=== PATIENT | female | born 1975 | race Caucasian/White ===

== ENCOUNTER 2022-04-19 15:31 | Outpatient (CLI) | payer BC, SELFPAY ==
--- NOTE | 2022-05-04 12:32 | W.PM.SLEEP ---
Sleep Study Details Details Interpreting Provider: Jalen Chaparro MD Date of Sleep Study: 04/19/22 Sleep Study Details: STUDY TYPE:? Home sleep study ? BMI:? Not recorded ORDERING PROVIDER:? Trey INDICATION:? Concerns about sleep apnea ? SLEEP SUMMARY:? Monitor time 410 minutes RESPIRATORY SUMMARY:? AHI of 14.6. Supine AHI 25, prone AHI 35, left lateral AHI 22.9 right lateral AHI 12., upright AHI 4.4 low oxygen was 86% 0.9% of the study oxygen less than 90 %. PERIODIC LIMB MOVEMENTS OF SLEEP:? Not measured CARDIAC:? 62-119, mean 85.1. Snoring% 18.3 IMPRESSION:? Mild obstructive sleep apnea worse in the supine, prone and left lateral position RECOMMENDATION: AutoSet CPAP at a pressure of 4-17. Other considerations for treatment would be dental appliance possibly weight loss and/or airway expansion surgery.
--- NOTE | 2022-05-11 12:30 | W.PM.SLEEP ---
Sleep Study Details Details Interpreting Provider: Jalen Chaparro MD Date of Sleep Study: 04/19/22 Sleep Study Details: STUDY TYPE:? Home ? BMI:? Not available ORDERING PROVIDER:? Trey INDICATION:? Concerns about sleep apnea ? SLEEP SUMMARY:? Monitor time 410 minutes RESPIRATORY SUMMARY:? AHI of 14.6, supine AHI 25, left lateral AHI 22.9, right lateral AHI 12.1, upright 4.4. Low oxygen 86%, 0.9% of study oxygen was less than 90% PERIODIC LIMB MOVEMENTS OF SLEEP:? Not measured CARDIAC:? Range 62 to 119, mean heart rate during sleep 85.1, snore summary 18.3% IMPRESSION:? Mild sleep apnea with supine, prone and left lateral position dependency. RECOMMENDATION: Treatment options include CPAP, dental appliance and/or airway expansion surgery. Would favor AutoSet CPAP at a pressure of 4-17
== END 2022-04-19 15:32 | disposition home or self-care (01) ==
LOC: SLEEP 15:32
PROVIDERS: PCP Family Medicine; Visit Provider Family Medicine
DX: G47.33 Obstructive sleep apnea (adult) (pediatric) (principal)
CPT/HCPCS: 95806

== ENCOUNTER 2022-04-29 08:32 | Outpatient (CLI) | payer BC, SELFPAY | END 2022-04-29 08:33 | disposition home or self-care (01) | LOC: FRMREF 08:32 | PROVIDERS: PCP Family Medicine; Visit Provider Dermatology | DX: L73.2 Hidradenitis suppurativa (principal) | CPT/HCPCS: 87070 ==

== ENCOUNTER 2022-10-20 10:42 | Outpatient (CLI) | payer BC, SELFPAY ==
--- NOTE | 2022-10-20 10:45 | CRLHL7_ITS ---
For Patients: As a result of the Century Cures Act, medical imaging exams and procedure reports are released immediately into your electronic medical record. You may view this report before your referring provider. If you have questions, please contact your health care provider. BILATERAL SCREENING MAMMOGRAM WITH COMPUTER-AIDED DETECTION TECHNIQUE: CC and MLO views were obtained. These mammographic images have been obtained using full-field digital technique. These mammographic images were interpreted with the benefit of computer-aided detection. COMPARISON FILM: 08/25/21, 08/03/20, 08/08/19. FINDINGS: The breasts are heterogeneously dense, which may obscure small masses IMPRESSION: There is no radiographic evidence for malignancy. ASSESSMENT: BI-RADS Category 2: Benign RECOMMENDATION: Routine screening mammogram in 1 year. A lay language report of this examination will be provided to the patient. Bebo Arellano M.D. Diagnostic Radiologist [email or web address] TAWNY/Dictated by: Bebo Arellano MD @ 10/20/2022 12:27:00 PM (Electronically Signed)
== END 2022-10-20 10:43 | disposition home or self-care (01) ==
LOC: MAMMO 10:43
PROVIDERS: PCP Family Medicine; Visit Provider Family Medicine
DX: Z12.31 Encounter for screening mammogram for malignant neoplasm of breast (principal); R92.2 Inconclusive mammogram
CPT/HCPCS: 77063; 77067

== ENCOUNTER 2023-03-15 09:46 | Outpatient (CLI) | payer BC, SELFPAY | END 2023-03-15 09:47 | disposition home or self-care (01) | PROVIDERS: PCP Family Medicine; Visit Provider Family Medicine | DX: L73.2 Hidradenitis suppurativa (principal) | CPT/HCPCS: 80048; 84460; 85025 ==

== ENCOUNTER 2023-11-18 12:54 | Outpatient (CLI) | payer BC, SELFPAY ==
--- OUTSIDE RECORDS SUMMARY | 2023-11-18 12:57 | XMS_ITS | Encounter Summary ---
Author Name Unknown Organization [place] Address [address] [place] [address]. [place] [address] Care Team Providers Care Fleecer Name Role Phone Sera Stapleton MD Primary Care Provider [phone] Sera Stapleton MD Unavailable Dunia Priest APRN SCRAP WHEELER Unavailable Un available Dunia Priest APRN SCRAP WHEELER Unavailable Un available Julia Paris Primary Care Provider [phone] Cheryl Bryson DPM, Podiatry /Foot and Ankle Surgery Unavailable Reason for Visit * Reason Onset Date Comments Orders 11/02/2016 Encounter Details Date Type Department Care Team (Late st Contact Info) Description 11/02/2016 Telephone [facility] [address] [place] [address] Sera Stapleton MD [address] [place] [id number] Orders Social History Tobacco Use Types Packs/Day Years Used Date Smoking Tobacco: Former Cigarettes Q uit: 08/10/2009 Smokeless Tobacco: Never Alcohol Use Standard Drinks/Week Comments No 0 (1 standard drink = 0.6 oz pur e alcohol) occ Sex and Gender Information Value Date Recorded Sex Assigned at Not on file Gender Identity Not on file Sexual Orientation Not on file documented as of this encounter Miscellaneous Notes * Telephone Encounter - Zita Paul RN - 11/03/2016 8:44 AM CST Patient has not been seen for routine office visit in last year and longer. Call placed to patient left message to advise that she has not had a routine physical exam in the past year. An appointmentwould be indicated and then the physician can determine what tests may need to be ordered. Advised to call and schedule appointment. Zita Paul R.N. AGE GRINDER * Telephone Encounter - Alisa Orr - 11/02/2016 4:02 PM CST Reason for Call: Patient requesting order be entered for Diagnostic Mammogram with US be entered asshe is having breast pain and cancelled todays appt. Best phone number to reach pt at is: [phone] Ok to leave a message with medical info? yes Pharmacy preferred (if calling for a refill): hoa [facility]r [facility] AGE GRINDER documented in this encounter Plan of Treatment Not on file documented as of this encounter Visit Diagnoses Not on filedocumented in this encounter Care Teams Fleecer Relationship Specialty Start Date End Date Sera Stapleton MD PCP - General Family Practice 09/05/14 11/12/19 [place] [address] PCP - Assigned PCP 12/31/13 08/05/18 Dunia Priest APRN SCRAP WHEELER PCP - Assigned PCP 08/06/18 12/05/18 Julia Paris [facility] [address] [place] [address] PCP - General manager patient 10/08/20 Dunia Priest APRN SCRAP WHEELER Assigned PCP 08/06/18 08/08/21 Cheryl Bryson DPM, Podiatry/Foot and Ankle Surgery [address] [place] [id number] Assigned Musculoskeletal Provider 10/12/20 05/07/22 documented as of this encounter
--- OUTSIDE RECORDS SUMMARY | 2023-11-18 12:57 | XMS_ITS | Encounter Summary ---
Author Name Unknown Organization [place] Address [address] [place] [address]. [place] [address] Care Team Providers Care Lean Specialist Name Role Phone Sera Stapleton MD Primary Care Provider [phone] Sera Stapleton MD Unavailable Dunia Priest APRN CHRISTMAS TREE FARM WORKER Unavailable Un available Dunia Priest APRN CHRISTMAS TREE FARM WORKER Unavailable Un available Julia Paris Primary Care Provider [phone] Cheryl Bryson DPM, Podiatry /Foot and Ankle Surgery Unavailable Encounter Details Date Type Department Care Team (Late st Contact Info) Description 03/13/2015 Orders Only M [facility] [address] [place] [address] Mariana Hernandez Eye irritation Social History Tobacco Use Types Packs/Day Years [...] on file documented as of this encounter Plan of Treatment Not on file documented as of this encounter Procedures Procedure Name Priority Date/Time Associated Diagnosis Comments SSB LA LINDA ANTIBODY IGG Routine 03/10/2015 3:50 PM CDT Eye irritation SSA RO LINDA ANTIBODY IGG Routine 03/10/2015 3:50 PM CDT Eye irritation documented in this encounter Results * SSB La LINDA Antibody IgG (03/10/2015 3:50 PM CDT) SSB (La) (LINDA) Antibody, IgG <0.2 Negative Antibody index (AI) values reflect qualitative changes in antibody concentration that cannot be directly associated with clinical condition or disease state. 0.0 - 0.9 AI [facility] Blood specimen (specimen) 03/10/2015 3:50 PM CDT 03/10/2015 3:55 PM CDT Sera Stapleton MD LAB - BLOOD ORDERABL ES Performing Organization Address [facility] Co de Phone Number [address] * SSA Ro LINDA Antibody IgG (03/10/2015 3:50 PM CDT) SSA (Ro) (LINDA) Antibody, IgG <0.2 Negative Antibody index (AI) values reflect qualitative changes in antibody concentration that cannot be directly associated with clinical condition or disease state. 0.0 - 0.9 AI [facility] Blood specimen (specimen) 03/10/2015 3:50 PM CDT 03/10/2015 3:55 PM CDT Sera Stapleton MD LAB - BLOOD ORDERABL ES Performing Organization Address City/[facility] Co de Phone Number [address] documented in this encounter Visit Diagnoses Diagnosis Eye irritation Other ill-defined disorder of eye documented in this encounter Care Teams Lean Specialist Relationship Specialty Start Date End Date Sera Stapleton MD PCP - General Family Practice 09/05/14 11/12/19 S[place] [address] PCP - Assigned PCP 12/31/13 08/05/18 Dunia Priest APRN CHRISTMAS TREE FARM WORKER PCP - Assigned PCP 08/06/18 12/05/18 Julia Paris [address] [address] PCP - General filter tender jelly 10/08/20 Dunia Priest APRN CHRISTMAS TREE FARM WORKER Assigned PCP 08/06/18 08/08/21 Cheryl Bryson DPM, Podiatry/Foot and Ankle Surgery [address] [place] [address] Assigned Musculoskeletal Provider 10/12/20 05/07/22 documented as of this encounter
--- OUTSIDE RECORDS SUMMARY | 2023-11-18 12:57 | XMS_ITS | Referral Summary ---
Author Name Unknown Organization [place] Address [address] [place] [address] Care Team Providers Care Plating Technician Name Role Phone Julia Paris Primary Care Provider Allergies Active Allergy Reactions Criticality Noted Date Comments Ketotifen Fumarate Itching 02/27/2015 Penicillins Hives 07/31/2012 Medications Medication Sig Dispensed Refills Start Date End Date Status Cholecalciferol (VITAMIN D) 2000 UNITS CAPS Take 1 capsule by mouth. 0 Active clobetasol (TEMOVATE) 0.05 % external ointmentIndications :Eczema of both hands,Psoriasis Affected to affected area on hands bid for 10-14 consecutive days and then when needed 45 g 2 09/07/2018 Active desonide (DESOWEN) 0.05 % external creamIndications:Ec zema of both hands Apply bid to affected area on eyelids and lips x 1-2 weeks. Tapering with improvement. 30 g 1 09/07/2018 Active famotidine (PEPCID) 10 MG tablet Take 10 mg by mouth as needed 0 Active cetirizine (ZYRTEC) 10 MG tablet as needed 0 05/29/2020 Active EPINEPHrine (ANY BX GENERIC EQUIV) 0.3 MG/0.3ML injection 2-pack as needed 0 09/05/2020 Active Sulfamethoxazole-Tr imethoprim (SEPTRA PO) Take by mouth 2 times daily Until starts Humira 0 Active HUMIRA *CF* PEN-CD/UC/HS STARTER 80 MG/0.8ML pen kit 0 10/01/2020 Active methylPREDNISolone (MEDROL DOSEPAK) 4 MG tablet therapy packIndications:Lef t foot pain,Plantar fasciitis, left,Psoriasis with arthropathy (H),Morbid obesity (H) Follow Package Directions 21 tablet 0 11/05/2020 Active Hospital, Clinic, or Other Facility Administered Medication Ordered Dose Route Frequency Start Date End Date Status triamcinolone (KENALOG-40) injection 40 mgIndications:Morbid obesity (H),Left foot pain,Plantar fasciitis, left,Cedeno's neuroma, left,Psoriasis with arthropathy (H) 40 mg INTRA-LESION ONCE 10/08/2020 Active Active Problems Problem Noted Date Diagnosed Date Morbid obesity 10/08/2020 Moderate recurrent major depression 08/03/2018 Psoriasis with arthropathy 08/03/2018 H/O LEEP 12/09/2016 Overview: LEEP in [id number], no records to review. 07/31/12: NIL pap, Neg HR HPV result. 05/08/13: NIL pap, Neg HR HPV result. (abstracted records) 12/02/16: NIL pap, Neg HR HPV result. Plan cotest in 3 years. Pt will need cotest's every 3 years until 2022. Vitamin D deficiency 12/02/2016 Family history of psoriasis in father 07/21/2016 labor 02/07/2013 Eczema Resolved Problems Problem Noted Date Diagnosed Date Resolved Date Indication for care in labor or delivery 03/27/2013 12/02/2016 Normal labor and delivery 03/18/2013 Immunizations Name Administration Dates Next Due Influenza (IIV3) PF 07/05/2018,07/17/2012 TDAP (Adacel,Boostrix) 02/01/2012 TDAP Vaccine (Adacel) 02/09/2013 Social History Tobacco Use Types Packs/Day Years Used Date Smoking Tobacco: Former Cigarettes Q uit: 08/10/2009 Smokeless Tobacco: Never Tobacco Cessation:Counseling Given: Yes Alcohol Use Standard Drinks/Week Comments No 0 (1 standard drink = 0.6 oz pur e alcohol) occ PHQ-2 Answer Date Recorded PHQ-2 Score 2 08/03/2018 Adolescent Education Answer Date Record ed Getting School Help Needed Not on file 06/24 Sex and Gender Information Value Date Recorded Sex Assigned at Not on file Gender Identity Not on file Sexual Orientation Not on file Last Filed Vital Signs Vital Sign Reading Time Taken Comments Blood Pressure 112/88 11/05/2020 9:27 AM CHEMICAL HANDLER Pulse 76 09/07/2018 9:43 AM CHEMICAL HANDLER Temperature 36.9 ??C (98.5 ??F) 08/03/2018 12:55 PM C DT Respiratory Rate 18 08/03/2018 12:55 PM CDT Oxygen Saturation 99% 09/07/2018 9:43 AM CHEMICAL HANDLER Inhaled Oxygen Concentration - - Weight 109.8 kg (242 lb) 11/05/2020 9:27 AM CHEMICAL HANDLER Height 160 cm (5' 3) 11/05/2020 9:27 AM CHEMICAL HANDLER Body Mass Index 42.87 11/05/2020 9:27 AM CHEMICAL HANDLER Plan of Treatment Not on file Care Teams Plating Technician Relationship Specialty Start Date End Date Julia Paris [facility] [address] [place] [address] PCP - General welder experimental 10/08/20
--- OUTSIDE RECORDS SUMMARY | 2023-11-18 12:57 | XMS_ITS | Encounter Summary ---
Author Name Unknown Organization [place] Address [address] [place] [address]. [place] [address] Care Team Providers Care Headmaster/Mistress Name Role Phone Dunia Priest APRN LABORER HIGH DENSITY PRESS Unavailable Un available Julia Paris Primary Care Provider [phone] Cheryl Bryson DPM, Podiatry /Foot and Ankle Surgery Unavailable Encounter Details Date Type Department Care Team (Late st Contact Info) Description 11/21/2020 MyC Medical Advice [facility] [address] [facility], [address] [place] [address] Meredith Jalloh, MASOOD Social History Tobacco Use Types Packs/Day Years Used Date Smoking Tobacco: Former Cigarettes Q uit: 08/10/2009 Smokeless Tobacco: Never Alcohol Use Standard Drinks/Week Comments No 0 (1 standard drink = 0.6 oz pur e alcohol) occ PHQ-2 Answer Date Recorded PHQ-2 Score 2 08/03/2018 Sex and Gender Information Value Date Recorded Sex Assigned at Not on file Gender Identity Not on file Sexual Orientation Not on file COVID-19 Exposure Response Date Recorded In the last month, have you been in contact with someone who was confirmed or suspected to have Coronavirus / COVID-19? No / Unsure 11/05/2020 9:23 AM CELL MANAGER documented as of this encounter Plan of Treatment Not on file documented as of this encounter Visit Diagnoses Not on filedocumented in this encounter Additional Health Concerns Assessment Noted Time PHQ-9 Depression Total Score: 10 018 2:51 PM CDT documented as of this encounter Care Teams Headmaster/Mistress Relationship Specialty Start Date End Date Julia Paris [facility] [address] [place] [address] PCP - General website/blog editor 10/08/20 Dunia Priest APRN LABORER HIGH DENSITY PRESS Assigned PCP 08/06/18 08/08/21 Cheryl Bryson, JOYCELYN, Podiatry/Foot and Ankle Surgery [address] [place] [address] Assigned Musculoskeletal Provider 10/12/20 05/07/22 documented as of this encounter
--- OUTSIDE RECORDS SUMMARY | 2023-11-18 12:57 | XMS_ITS | Clinical Summary ---
Author Name Unknown Organization [place] Address [address] [place] [address] Care Team Providers Care Windsurfing Instructor Name Role Phone Julia Paris Primary Care [...] 08/03/2018 H/O LEEP 12/09/2016 Overview: LEEP in [id number], no records to review. 07/31/12: NIL pap, [...] TDAP (Adacel,Boostrix) 02/01/2012 TDAP Vaccine (Adacel) 02/09/2013 Family History Medical History Relation Comments Hypertension Father Heart Disease Maternal Grandfather Hypertension Maternal Grandfather Neurologic Disorder Maternal Grandfather Rachel on's Cancer Maternal Grandmother pancreatic cancer Heart Disease Paternal Grandfather Heart attac k Cancer Paternal Grandmother lung cancer Relation Status Comments Brother Daughter Alive Father Alive Maternal Grandfather Maternal Grandmother Mother Alive Paternal Grandfather Paternal Grandmother Sister Son Alive Social History Tobacco Use Types Packs/Day Years [...] Comments Blood Pressure 112/88 11/05/2020 9:27 AM TURBINE BLADE ASSEMBLER Pulse 76 09/07/2018 9:43 AM TURBINE BLADE ASSEMBLER Temperature 36.9 ??C (98.5 ??F) 08/03/2018 12:55 PM C DT Respiratory Rate 18 08/03/2018 12:55 PM CDT Oxygen Saturation 99% 09/07/2018 9:43 AM TURBINE BLADE ASSEMBLER Inhaled Oxygen Concentration - - Weight 109.8 kg (242 lb) 11/05/2020 9:27 AM TURBINE BLADE ASSEMBLER Height 160 cm (5' 3) 11/05/2020 9:27 AM TURBINE BLADE ASSEMBLER Body Mass Index 42.87 11/05/2020 9:27 AM TURBINE BLADE ASSEMBLER Plan of Treatment Health Maintenance Due Date Last Done Comments ADVANCE CARE PLANNING 1975 ANNUAL REVIEW OF HM ORDERS [address] CT COLONOGRAPHY 1977 DEPRESSION ACTION PLAN 1977 FIT 1975 FLEX SIG 1975 HEPATITIS B IMMUNIZATION (1 of 3 - 3-dose series) 1975 sDNA (Cologuard) 1975 COVID-19 Vaccine (#1) 1982 Pneumococcal Vaccine: Pediatrics (0 to 5 Years) and At-Risk Patients (6 to 64 Years) (1 of 2 - PCV) 12/18/1983 COLONOSCOPY 12/18/1987 COLORECTAL CANCER SCREENING 12/18/1987 HEPATITIS C SCREENING 12/18/1995 PHQ-9 01/31/2019 08/03/2018, 12/09/2015 YEARLY PREVENTIVE VISIT 08/03/2019 08/03/20 18, 12/02/2016, 07/31/2012 HPV TEST 12/03/2019 12/02/2016, 11/2016, 03/10/2016, Additional history exists PAP 12/03/2019 12/02/2016, 05/2016, 12/09/2015, Additional history exists MAMMO SCREENING 08/03/2020 08/03/2018, 03/2 04/2017, 10/27/2015 GLUCOSE 08/03/2021 08/03/2018, 03/0 11/2016, 01/22/2016 LIPID 12/02/2021 12/02/2016, 01/22/2016 DTAP/TDAP/TD IMMUNIZATION (3 - Td or Tdap) 02/09/2023 02/09/2013, 02/01/2012 INFLUENZA VACCINE (#1) 2023 8, 07/05/2018, 07/28/2012, Additional history exists HIV SCREENING Completed 08/31/2012 HPV IMMUNIZATION Aged Out No longer e ligible based on patient's age to complete this topic IPV IMMUNIZATION Aged Out No longer e ligible based on patient's age to complete this topic MENINGITIS IMMUNIZATION Aged Out No l onger eligible based on patient's age to complete this topic RSV MONOCLONAL ANTIBODY Aged Out No l onger eligible based on patient's age to complete this topic Care Teams Windsurfing Instructor Relationship Specialty Start Date End Date Julia Paris [facility] [address] [place] [address] PCP - General supervisor die casting 10/08/20
--- OUTSIDE RECORDS SUMMARY | 2023-11-18 12:57 | XMS_ITS | Encounter Summary ---
Author Name Unknown Organization [place] Address [address] [place] [address]. [place] [address] Care Team Providers Care Casing Mixer Name Role Phone Riccardo Munson MD Primary Care Provider [phone] Sera Stapleton MD Primary Care Provider [phone] Sera Stapleton MD Unavailable Dunia Priest WASHING MACHINE INSTALLER DESKTOP ANALYST Unavailable Un available Dunia Priest APRN DESKTOP ANALYST Unavailable Un available Julia Paris Primary Care Provider [phone] Cheryl Bryson DPM, Podiatry /Foot and Ankle Surgery Unavailable Encounter Details Date Type Department Care Team (Late st Contact Info) Description 01/15/2013 PRE VISIT [facility] [place] [address] [facility] [address] [place] [address] Lizzie Garcia RN Social History Tobacco Use Types Packs/Day Years Used Date Smoking Tobacco: Former Cigarettes Smokeless Tobacco: Never Alcohol Use Standard Drinks/Week Comments Yes 0 (1 standard drink = 0.6 oz pur e alcohol) occ Comments Yes Sex and Gender Information Value Date Recorded Sex Assigned at Not on file Gender Identity Not on file Sexual Orientation Not on file documented as of this encounter Plan of Treatment Not on file documented as of this encounter Visit Diagnoses Diagnosis History of delivery, currently - Primary with history of pre-term labor documented in this encounter Care Teams Casing Mixer Relationship Specialty Start Date End Date Riccardo Munson MD [facility] [address] [place] [address] PCP - General Family Practice 12/21/12 09/04/14 Sera Stapleton MD [facility] [address] [place] [address] PCP - General Family Practice 09/05/14 11/12/19 Sera Stapleton MD [facility] [place] [address] PCP - Assigned PCP 12/31/13 08/05/18 Dunia Priest APRN DESKTOP ANALYST PCP - Assigned PCP 08/06/18 12/05/18 Julia Taylor [facility] [address] [place] [address] PCP - General hearing aid consultant 10/08/20 Dunia Priest APRN DESKTOP ANALYST Assigned PCP 08/06/18 08/08/21 Cheryl Bryson DPM, Podiatry/Foot and Ankle Surgery [address] [place] [address] Assigned Musculoskeletal Provider 10/12/20 05/07/22 documented as of this encounter
--- NOTE | 2023-11-18 13:00 | MM_ITS ---
Final Report Patient: MORENO RODRIGUEZ Facility:?[facility] Patient ID:?[id number] Site Patient ID:?[id number]. Site :?1975 Study:?XRay Breast Bilateral 3D W/CAD-11/18/2023 1:36:42 PM Ordering Physician:Glenys Final Report: BILATERAL DIGITAL TOMOSYNTHESIS SCREENING MAMMOGRAM WITH COMPUTER-AIDED DETECTION CLINICAL HISTORY: Routine screening exam. COMPARISON: 10/20/2022, 08/25/2021, 08/20/2020 TECHNIQUE: Digital tomosynthesis mammogram in CC and MLO projections including computer- aided detection (CAD). BREAST COMPOSITION: Scattered fibroglandular densities. FINDINGS: RIGHT Breast: Normal breast tissue. No masses or achritectural distortion. No suspicious calcifications or adenopathy. LEFT Breast: Normal breast tissue. No masses or achritectural distortion. No suspicious calcifications or adenopathy. IMPRESSION: No suspicious findings. RECOMMENDATIONS: Annual bilateral screening mammography. BI-RADS category 1. Negative. Dictated by Bebo Arellano MD @ 11/18/2023 2:00:31 PM (Electronic Signature)
== END 2023-11-18 12:55 | disposition home or self-care (01) ==
PROVIDERS: PCP Family Medicine; Visit Provider Family Medicine
DX: Z12.31 Encounter for screening mammogram for malignant neoplasm of breast (principal)
CPT/HCPCS: 77063; 77067

== ENCOUNTER 2024-06-14 08:35 | Outpatient (CLI) | payer BC, SELFPAY ==
--- OUTSIDE RECORDS SUMMARY | 2024-06-14 08:39 | XMS_ITS | Clinical Summary ---
Author Organization [place] Address [address] [place] [address] Care Team Providers Care Head Of Drama Name Role Phone Julia Paris Primary Care Provider Allergies Active Allergy Reactions Criticality Noted Date Comments Ketotifen Fumarate Itching 02/27/2015 Penicillins Hives 07/31/2012 Medications Medication Sig Dispensed Refills Start Date End Date Status Cholecalciferol (VITAMIN D) 2000 UNITS CAPS Take 1 capsule by mouth. Active clobetasol (TEMOVATE) 0.05 % external ointmentIndications [...] Take 10 mg by mouth as needed Active cetirizine (ZYRTEC) 10 MG tablet as needed 05/29/2020 Active EPINEPHrine (ANY BX GENERIC EQUIV) 0.3 MG/0.3ML injection 2-pack as needed 09/05/2020 Active Sulfamethoxazole-Tr imethoprim (SEPTRA PO) Take by mouth 2 times daily Until starts Humira Active HUMIRA *CF* PEN-CD/UC/HS STARTER 80 MG/0.8ML pen kit 10/01/2020 Active methylPREDNISolone (MEDROL DOSEPAK) 4 MG tablet therapy packIndications:Lef t foot pain,Plantar fasciitis, left,Psoriasis with arthropathy (H),Morbid obesity (H) Follow Package Directions 21 tablet 11/05/2020 Active Hospital, Clinic, or Other Facility [...] 08/03/2018 H/O LEEP 12/09/2016 Overview: LEEP in [id number], no records to review. 07/31/12: NIL pap, [...] Comments Blood Pressure 112/88 11/05/2020 9:27 AM HELPER CHICKEN FARM Pulse 76 09/07/2018 9:43 AM HELPER CHICKEN FARM Temperature 36.9 ??C (98.5 ??F) 08/03/2018 12:55 PM C DT Respiratory Rate 18 08/03/2018 12:55 PM CDT Oxygen Saturation 99% 09/07/2018 9:43 AM HELPER CHICKEN FARM Inhaled Oxygen Concentration - - Weight 109.8 kg (242 lb) 11/05/2020 9:27 AM HELPER CHICKEN FARM Height 160 cm (5' 3) 11/05/2020 9:27 AM HELPER CHICKEN FARM Body Mass Index 42.87 11/05/2020 9:27 AM HELPER CHICKEN FARM Plan of Treatment Not on file Care Teams Head Of Drama Relationship Specialty Start Date End Date Julia Paris [facility] [address] [place] [address] PCP - General certified peer specialist 10/08/20
--- OUTSIDE RECORDS SUMMARY | 2024-06-14 08:39 | XMS_ITS | Referral Summary ---
Author Organization [facility] Address [address] [place] [id number] Care Team Providers Care Wood Ski Maker Name Role Phone Julia Paris Primary Care [...] 08/03/2018 H/O LEEP 12/09/2016 Overview: LEEP in [id number], no records to review. 07/31/12: NIL pap, [...] Comments Blood Pressure 112/88 11/05/2020 9:27 AM MAINTENANCE SHOP TECHNICIAN Pulse 76 09/07/2018 9:43 AM MAINTENANCE SHOP TECHNICIAN Temperature 36.9 ??C (98.5 ??F) 08/03/2018 12:55 PM C DT Respiratory Rate 18 08/03/2018 12:55 PM CDT Oxygen Saturation 99% 09/07/2018 9:43 AM MAINTENANCE SHOP TECHNICIAN Inhaled Oxygen Concentration - - Weight 109.8 kg (242 lb) 11/05/2020 9:27 AM MAINTENANCE SHOP TECHNICIAN Height 160 cm (5' 3) 11/05/2020 9:27 AM MAINTENANCE SHOP TECHNICIAN Body Mass Index 42.87 11/05/2020 9:27 AM MAINTENANCE SHOP TECHNICIAN Plan of Treatment Not on file Care Teams Wood Ski Maker Relationship Specialty Start Date End Date Julia Paris [address] [address] PCP - General wood ski maker 10/08/20
--- OUTSIDE RECORDS SUMMARY | 2024-06-14 08:39 | XMS_ITS | Encounter Summary ---
Author Organization [facility] Address [address] [place] [address]. [place] [address] Care Team Providers Care Statue Maker Name Role Phone Riccardo Munson MD Primary Care Provider [phone] Sera Stapleton MD Primary Care Provider [phone] Sera Stapleton MD Unavailable Dunia Priest CT MRI TECHNOLOGIST COMBINE INSPECTOR Unavailable Un available Dunia Priest APRN COMBINE INSPECTOR Unavailable Un available Julia Paris Primary Care Provider [phone] Cheryl Bryson DPM, Podiatry /Foot and Ankle Surgery Unavailable Encounter Details Date Type Department Care Team (Late st Contact Info) Description 01/15/2013 PRE VISIT [facility] [place] [address] [place] [address] Lizzie Garcia RN Social History [...] labor documented in this encounter Care Teams Statue Maker Relationship Specialty Start Date End Date Riccardo Munson MD PCP - General Family Practice 12/21/12 09/04/14 Sera Stapleton MD PCP - General Family Practice 09/05/14 11/12/19 Sera Stapleton MD [facility] [place] [address] PCP - Assigned PCP 12/31/13 08/05/18 Dunia Priest APRN COMBINE INSPECTOR PCP - Assigned PCP 08/06/18 12/05/18 Julia Paris [facility] [address] [place] [address] PCP - General hemmer lockstitch 10/08/20 Dunia Priest APRN COMBINE INSPECTOR Assigned PCP 08/06/18 08/08/21 Cheryl Bryson DPM, Podiatry/Foot and Ankle Surgery [address] [place] [address] Assigned Musculoskeletal Provider 10/12/20 05/07/22 documented as of this encounter
--- OUTSIDE RECORDS SUMMARY | 2024-06-14 08:39 | XMS_ITS | Encounter Summary ---
Author Organization [facility] Address [address] [place] [address]. [place] [address] Care Team Providers Care Electronics Technician Apprentice Name Role Phone Sera Stapleton MD Primary Care Provider [phone] Sera Stapleton MD Unavailable Dunia Priest APRN TURKEY PICKER Unavailable Un available Dunia Priest APRN TURKEY PICKER Unavailable Un available Julia Paris Primary Care Provider [phone] Cheryl Bryson DPM, Podiatry /Foot and Ankle Surgery Unavailable Reason for Visit * Reason Onset Date Comments Orders 11/02/2016 Encounter Details Date Type Department Care Team (Late st Contact Info) Description 11/02/2016 Telephone [facility] [address] [place] [address] Sera Stapleton MD [address] [place] [id number] Orders Social History Tobacco Use Types Packs/Day [...] call and schedule appointment. Zita Paul R.N. BLOWER * Telephone Encounter - Alisa Orr - 11/02/2016 4:02 PM CST Reason for Call: Patient requesting order be entered for Diagnostic Mammogram with US be entered asshe is having breast pain and cancelled todays appt. Best phone number to reach pt at is: [phone] Ok to leave a message with medical info? yes Pharmacy preferred (if calling for a refill): [facility] documented in this encounter Plan of Treatment Not on file documented as of this encounter Visit Diagnoses Not on filedocumented in this encounter Care Teams Electronics Technician Apprentice Relationship Specialty Start Date End Date Sera Stapleton MD PCP - General Family Practice 09/05/14 11/12/19 [place] [address] PCP - Assigned PCP 12/31/13 08/05/18 Dunia Priest APRN TURKEY PICKER PCP - Assigned PCP 08/06/18 12/05/18 Julia Paris [facility] [address] [place] [address] PCP - General mail censor 10/08/20 Dunia Priest APRN TURKEY PICKER Assigned PCP 08/06/18 08/08/21 Cheryl Bryson DPM, Podiatry/Foot and Ankle Surgery [address] [place] [address] Assigned Musculoskeletal Provider 10/12/20 05/07/22 documented as of this encounter
--- OUTSIDE RECORDS SUMMARY | 2024-06-14 08:39 | XMS_ITS | Encounter Summary ---
Author Organization [facility] Address [address] [place] [address]. [place] [address] Care Team Providers Care Wet Machine Operator Name Role Phone Sera Stapleton MD Primary Care Provider + Sera Stapleton MD Unavailable Dunia Priest APRN [employer] Unavailable Un available Dunia Priest APRN [employer] Unavailable Un available Julia Paris Primary Care Provider [phone] Cheryl Bryson DPM, Podiatry /Foot and Ankle Surgery Unavailable Encounter Details Date Type Department Care Team (Late st Contact Info) Description 03/13/2015 Orders Only [facility] [address] [place] [address] Mariana Hernandez Eye irritation Social History Tobacco [...] or disease state. 0.0 - 0.9 [facility] Blood specimen (specimen) 03/10/2015 3:50 PM CDT 03/10/2015 3:55 PM CDT Sera Stapleton MD LAB - BLOOD ORDERABL ES Performing Organization Address [facility] Co de Phone Number [address] * SSA Ro LINDA Antibody IgG (03/10/2015 3:50 PM CDT) SSA (Ro) (LINDA) Antibody, IgG <0.2 Negative Antibody index (AI) values reflect qualitative changes in antibody concentration that cannot be directly associated with clinical condition or disease state. 0.0 - 0.9 AI [facility] Blood specimen (specimen) 03/10/2015 3:50 PM CDT 03/10/2015 3:55 PM CDT Sera Stapleton MD LAB - BLOOD ORDERABL ES Performing Organization Address City/[facility]/ZIP Co de Phone Number [address] documented in this encounter Visit Diagnoses Diagnosis Eye irritation Other ill-defined disorder of eye documented in this encounter Care Teams Wet Machine Operator Relationship Specialty Start Date End Date Sera Stapleton MD PCP - General Family Practice 09/05/14 11/12/19 [place] [address] PCP - Assigned PCP 12/31/13 08/05/18 Dunia Priest APRN [employer] PCP - Assigned PCP 08/06/18 12/05/18 Julia Paris [address] [address] PCP - General sports information director 10/08/20 Dunia Priest APRN [employer] Assigned PCP 08/06/18 08/08/21 Cheryl Bryson DPM, Podiatry/Foot and Ankle Surgery [address] [place] [place] [address] Assigned Musculoskeletal Provider 10/12/20 05/07/22 documented as of this encounter
--- OUTSIDE RECORDS SUMMARY | 2024-06-14 08:39 | XMS_ITS | Encounter Summary ---
Author Organization [facility] Address [address] [place] [address]. [place] [address] Care Team Providers Care Discharge Door Operator Name Role Phone Dunia Priest APRN CHANNEL SUPERVISOR Unavailable Un available Julia Paris Primary Care Provider Cheryl Bryson DPM, Podiatry /Foot and Ankle Surgery Unavailable Encounter Details Date Type Department Care Team (Late st Contact Info) Description 11/21/2020 MyC Medical Advice [facility] [address], [address] [place] [address] Meredith Jalloh, MASOOD Social History [...] COVID-19? No / Unsure 11/05/2020 9:23 AM MACHINE PAN GREASER documented as of this encounter Plan of Treatment Not on file documented as of this encounter Visit Diagnoses Not on filedocumented in this encounter Additional Health Concerns Assessment Noted Time PHQ-9 Depression Total Score: 10 018 2:51 PM CDT documented as of this encounter Care Teams Discharge Door Operator Relationship Specialty Start Date End Date Reuben Julia Taylor [facility] [address] [place] [address] PCP - General animal attendants and trainers 10/08/20 Dunia Priest APRN CHANNEL SUPERVISOR Assigned PCP 08/06/18 08/08/21 Cheryl Bryson DPM, Podiatry/Foot and Ankle Surgery [address] [place] [address] Assigned Musculoskeletal Provider 10/12/20 05/07/22 documented as of this encounter
== END 2024-06-14 08:36 | disposition home or self-care (01) ==
PROVIDERS: PCP Registered Nurse; Visit Provider Registered Nurse
DX: Z13.220 Encounter for screening for lipoid disorders (principal); Z13.228 Encounter for screening for other metabolic disorders
CPT/HCPCS: 80053; 80061

== ENCOUNTER 2024-11-20 07:08 | Outpatient (CLI) | payer OTHER, SELFPAY ==
[2024-11-20 14:46] LABS: Albumin* 4.6 g/dL (3.3-5.0); Chloride* 100 mmol/L (96-114); Potassium* 4.3 mmol/L (3.6-5.1); Sodium* 138 mmol/L (135-149)
[2024-11-20 14:48] LABS: Creatinine* 0.6 mg/dL (0.5-1.5); Estimated Glomerular Filt Rate 112 ml/min
[2024-11-20 14:49] LABS: Alanine Aminotransferase* 14 U/L (4-35); Alkaline Phosphatase* 43 U/L (40-150); Anion Gap 10 mEq/L (7-15); Aspartate Amino Transferase* 19 U/L (12-35); Bilirubin Total* 0.4 mg/dL (0.1-1.5); Blood Urea Nitrogen* 8 mg/dL (5-24); Calcium* 9.5 mg/dL (8.4-10.6); Carbon Dioxide* 28 mmol/L (20-32); Glucose* 82 mg/dL (60-115); Total Protein* 7.6 g/dL (6.0-8.3)
[2024-11-20 14:52] LABS: Basophils Absolute Auto 0.04 K/uL (0.00-0.30); Basophils Percent Auto 0.5 % (0.0-3.0); Eosinophils Percent Auto 1.4 % (0.0-7.0); Hematocrit 39.6 % (33.0-51.0); Immature Granulocytes Abs Auto 0.01 K/uL (0.00-0.30); Immature Granulocytes Pct Auto 0.1 %; Lymphocytes Absolute Auto 2.46 K/uL (0.90-2.90); Lymphocytes Percent Auto 33.5 % (20-44); Mean Corpuscular HGB Conc 33 gm/dL (32-36); Mean Corpuscular Hemoglobin 30 pg (26-34); Mean Corpuscular Volume 91 fL (80-100); Monocytes Percent Auto 6.3 % (0.0-11.0); Neutrophils Absolute Auto 4.28 K/uL (1.7-7.0); Neutrophils Percent Auto 58.2 % (42.0-72.0); Platelet Count* 362 K/uL (140-440); Red Blood Count 4.34 m/uL (4.00-5.20); White Blood Count* 7.35 K/uL (4.50-11.00)
[2024-11-20 14:53] LABS: Slide Review Reflex No
[2024-11-20 15:22] LABS: Hepatitis B Surface Antigen* Negative (Negative)
[2024-11-20 15:39] LABS: Hepatitis B Surface Antibody* Positive (Negative); Hepatitis C Virus Antibody* Negative (Negative)
[2024-11-22 14:01] LABS: Hepatitis B Core Antibodies Negative (Negative)
[2024-11-23 04:01] LABS: QuantiFERON Mitogen minus NIL 9.92 IU/mL; QuantiFERON NIL 0.08 IU/mL; Quantiferon Plus TB1 minus NIL 0.03 IU/mL (<=0.34); Quantiferon Plus TB2 minus NIL 0.02 IU/mL (<=0.34); Quantiferon TB Gold Plus Negative (Negative)
== END 2024-11-20 07:09 | disposition home or self-care (01) ==
LOC: NPINS 07:11
PROVIDERS: PCP Registered Nurse; Visit Provider Dermatology
DX: L73.2 Hidradenitis suppurativa (principal); L30.4 Erythema intertrigo; Z79.899 Other long term (current) drug therapy
CPT/HCPCS: 80053; 85025; 86480; 86704; 86706; 86803; 87340

== ENCOUNTER 2024-12-11 13:07 | Outpatient (CLI) | payer OTHER, SELFPAY ==
--- NOTE | 2024-12-11 13:20 | CRLHL7_ITS ---
For Patients: As a result of the Century Cures Act, medical imaging exams and procedure reports are released immediately into your electronic medical record. You may view this report before your referring provider. If you have questions, please contact your health care provider. BILATERAL SCREENING MAMMOGRAM WITH COMPUTER-AIDED DETECTION AND TOMOSYNTHESIS TECHNIQUE: CC and MLO views were obtained. These mammographic images have been obtained using full-field digital technique. These mammographic images were interpreted with the benefit of computer-aided detection. Breast Tomosynthesis was used in this interpretation. COMPARISON FILM: 11/18/23, 10/20/22, 08/25/21. FINDINGS: The breasts are heterogeneously dense, which may obscure small masses. IMPRESSION: There is no radiographic evidence for malignancy. ASSESSMENT: BI-RADS Category 2: Benign RECOMMENDATION: Routine screening mammogram in 1 year. A lay language report of this examination will be provided to the patient. Bebo Arellano M.D. Diagnostic Radiologist [email or web address] SP/Dictated by: Bebo Arellano MD @ 12/12/2024 1:31:00 PM (Electronically Signed)
== END 2024-12-11 13:08 | disposition home or self-care (01) ==
PROVIDERS: PCP Registered Nurse; Visit Provider Registered Nurse
DX: Z12.31 Encounter for screening mammogram for malignant neoplasm of breast (principal); R92.333 Mammographic heterogeneous density, bilateral breasts
CPT/HCPCS: 77063; 77067

== ENCOUNTER 2025-02-07 14:37 | Outpatient (CLI) | payer OTHER, SELFPAY | END 2025-02-07 14:38 | disposition home or self-care (01) | LOC: NFLDREF 14:40 | PROVIDERS: PCP Registered Nurse; Visit Provider Obstetrics & Gynecology | DX: N94.89 Other specified conditions associated with female genital organs and menstrual cycle (principal); B95.1 Streptococcus, group B, as the cause of diseases classified elsewhere | CPT/HCPCS: 87070; 87186 ==

== ENCOUNTER 2025-03-14 15:33 | Outpatient (CLI) | payer OTHER, SELFPAY ==
[2025-03-17 01:08] LABS: HPV Source Cervical; HPV, High Risk by TMA Not Detected
== END 2025-03-14 15:34 | disposition home or self-care (01) ==
PROVIDERS: PCP Registered Nurse; Visit Provider Obstetrics & Gynecology
DX: Z12.4 Encounter for screening for malignant neoplasm of cervix (principal); N76.2 Acute vulvitis; Z11.51 Encounter for screening for human papillomavirus (HPV)
CPT/HCPCS: 87624; 87625; 88141; 88142

== ENCOUNTER 2025-07-08 10:10 | Outpatient (CLI) | payer OTHER, SELFPAY | END 2025-07-08 10:11 | disposition home or self-care (01) | PROVIDERS: PCP Family Medicine; Visit Provider Family Medicine | DX: E78.2 Mixed hyperlipidemia (principal); F41.1 Generalized anxiety disorder | CPT/HCPCS: 80048; 80061 ==